=== PATIENT | female | born 2000 | race Hispanic/Latino ===

== ENCOUNTER 2025-08-06 10:55 | Emergency (ER) | payer OTHER, BC ==
[~2025-08-06] VITALS: Ht 167.6 cm; Wt 83.9 kg
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
[2025-08-06] MEDS: CYCLOBENZAPRINE HCL 10 MG TABLET PO ONE (11:16)
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
[2025-08-06] MEDS ORDERED: IBUP-2077 PO (12:56)
[2025-08-06] MEDS ORDERED: CYCL-309 PO (12:56)
[2025-08-06 13:14] VITALS: BP 124/66; PULSE 70; RESP 16; TEMP 98.1; O2SAT 97
== END 2025-08-06 13:23 | disposition home or self-care (01) ==
LOC: EDH 10:55
DX: S16.1XXA Strain of muscle, fascia and tendon at neck level, initial encounter (principal); V89.2XXA Person injured in unspecified motor-vehicle accident, traffic, initial encounter; Y93.89 Activity, other specified; Y92.89 Other specified places as the place of occurrence of the external cause; Y99.8 Other external cause status
CPT/HCPCS: 36415; 72040; 84703; 99284